=== PATIENT | male | born 1955 | race Caucasian/White ===

== ENCOUNTER 2021-12-10 21:29 | Emergency (ER) | payer BC, MEDICARE ==
[2021-12-10] MEDS ORDERED: EPINEPHrine 1 MG/10 ML Abboject SYRINGE ONE (21:37)
[2021-12-10] MEDS ORDERED: NOREPINEPHRINE 8 MG/250 ML-D5W 250 ML ONE (21:56)
[2021-12-10 22:18] LABS: Hemoglobin 10.1 g/dL (13.5-17.5); Mean Corpuscular Volume 106.4 fl (81.2-95.1); Mean Platelet Volume 11.1 fl (7.4-10.4); Platelet Count 183 10x3/uL (150-450); RBC Distribution Width 14.4 % (11.5-14.5); Red Blood Cell (RBC) Count 2.97 10x6/uL (4.32-5.72); White Blood Cell (WBC) Count 15.2 10x3/uL (3.5-10.5)
[2021-12-10 22:20] LABS: MDiff Complete? YES
[2021-12-10] MEDS ORDERED: Fentanyl 100 MCG/2 ML VIAL ONE (22:20)
[2021-12-10] MEDS ORDERED: Propofol 1,000 MG/100 ML VIAL IV ONE (22:20)
[2021-12-10 22:25] LABS: INR-International Normal Ratio 1.1; PTT 23.1 sec (22.0-33.0); Prothrombin Time 12.2 sec (9.5-12.1)
[2021-12-10] MEDS ORDERED: cefTRIAXone\\ROCEPHIN 1 GM VIAL ONE (22:30)
[2021-12-10 22:32] LABS: ALT (SGPT) 115 U/L (8-55); AST (SGOT) 246 U/L (5-34); Acetaminophen Less than 10.0 mcg/mL (10.0-30.0); Albumin 4.3 g/dL (3.4-4.8); Alcohol Less than 10 mg/dL (Less than 10); Alkaline Phosphatase 81 U/L (40-110); Anion Gap 47 mmol/L (10-20); BUN (Urea Nitrogen) 57 mg/dL (8.4-25.7); Bilirubin, Total 2.3 mg/dL (0.2-1.2); Calc. Creatinine Clearance 0 mL/min (70-130); Chloride 81 mmol/L (98-107); Estimated GFR 17; Globulin 2.8 g/dL (2.4-3.5); Glucose 195 mg/dL (80-115); Lipase 963 U/L (8-78); Potassium 3.9 mmol/L (3.5-5.1); Protein, Total 7.1 g/dL (5.8-8.1); Salicylate Less than 8.0 mg/dL (15.0-30.0); Sodium 132 mmol/L (136-145)
[2021-12-10 22:34] LABS: Carbon Dioxide 8 mmol/L (23-31)
[2021-12-10 22:39] LABS: Magnesium 2.6 mg/dL (1.6-2.6)
[2021-12-10 22:47] LABS: Band 3 % (5-11); Lymphocytes 8 % (21-51); Monocytes 6 % (0-10); Neutrophil 83 % (42-75)
[2021-12-10 22:49] LABS: Anisocytosis SLIGHT = 6-15 cells (100X) (0-5/hpf); Hypochromia SLIGHT = 6-15 cells (100X) (0-5/hpf)
[2021-12-10 22:50] LABS: Platelet Morphology Comment Appears Adequate
[2021-12-10 22:54] LABS: CKMB 44.5 ng/mL (0-6.6)
[2021-12-10] MEDS ORDERED: Lidocaine 1% (PF) 30 ML VIAL ONE (22:59)
[2021-12-10] MEDS ORDERED: Rocuronium Bromide 10 MG/ML (10ML VIAL) ONE (23:00)
[2021-12-10 23:48] LABS: SARS-CoV-2 NAA Rapid Test Not Detected (NotDetected)
[2021-12-11] MEDS ORDERED: Pantoprazole 40 MG VIAL ONE (00:09)
[2021-12-11] MEDS ORDERED: Octreotide Acetate 100 MCG/ML VIAL ONE (00:10)
[2021-12-11] MEDS ORDERED: Octreotide Acetate 50 MCG/ML AMP ONE (00:10)
[2021-12-11] MEDS ORDERED: SODIUM CHLORIDE 0.9% IVPB SCH (00:15)
[2021-12-11] MEDS ORDERED: Octreotide Acetate 1,250 MCG in Sodium Chloride 0.9% 250 ML 250 ML IVPB SCH (00:15)
[2021-12-11] MEDS ORDERED: FOMEPIZOLE IVPB SCH (00:15)
[2021-12-11 00:59] LABS: Hemoglobin 11.8 g/dL (13.5-17.5)
[2021-12-11 00:59] LABS: Lactic Acid 2.2 mmol/L (0.5-2.2)
[2021-12-11 01:32] LABS: ALV-art Gradient 255.475 mmHg (0-20); Actual Bicarbonate (HCO3a) 19.9 mEq/L (22-28); Base Excess (BEa) -8.1 mEq/L (-2.0 to +3.0); CO2 Tension 51.7 mmHg (35.0-45.0); Calcium, Ionized (arterial) 1.03 mmol/L (1.12-1.30); Critical Notified By: CP.PH; Hemoglobin (Hb) 12.1 g/dL (14.0-18.0); O2 Tension (PaO2), arterial 107.7 mmHg (> 80.0); Potassium - ABG Lab 3.6 mmol/L (3.70-5.30); Puncture Site RRA; RapidComm Collect By CP.PH
[2021-12-11] MEDS ORDERED: Midazolam HCl 2 mg/2 ml Vial ONE ×2 (02:04→03:28)
[2021-12-11] MEDS ORDERED: Propofol 1,000 MG/100 ML VIAL IV ONE (02:22)
[2021-12-11] MEDS ORDERED: INSULIN REGULAR IN 0.9 % NACL 100 UNIT/100 ML BAG ONE (02:49)
== END 2021-12-11 03:55 | disposition short-term general hospital (02) ==
LOC: CSHERS 21:29
DX: K92.2 Gastrointestinal hemorrhage, unspecified (principal); N17.9 Acute kidney failure, unspecified; G93.41 Metabolic encephalopathy; E87.2 Acidosis; K85.90 Acute pancreatitis without necrosis or infection, unspecified; J96.90 Respiratory failure, unspecified, unspecified whether with hypoxia or hypercapnia; Z20.822 Contact with and (suspected) exposure to COVID-19
CPT/HCPCS: 31500; 32555; 36415; 36416; 36430; 36556; 36600; 51702; 71045; 80053; 80307; 82010; 82140; 82553; 82805; 83605; 83690; 83735; 83880; 83930; 84443; 84484; 85025; 85610; 85730; 86850; 86900; 86901; 87040; 93005; 94002; 94003; 94760; 96365; 96366; 96367; 96368; 96375; 96376; 99292; C9113; J0171; J0696; J1451; J1815; J2001; J2250; J2354; J2704; J3010; J3370; J3490; P9016; U0002